=== PATIENT | male | born 1960 | race Caucasian/White ===

== ENCOUNTER 2017-10-20 01:29 | Emergency (ER) | payer SELFPAY ==
[2017-10-20] MEDS: fentaNYL CITRATE/PF 100 MCG/ 2ML AMP IVP ONE (01:51)
[2017-10-20] MEDS: ONDANSETRON HCL/PF 4 MG/ 2ML VIAL IVP ONE (01:52)
[2017-10-20] MEDS: 0.9 % SODIUM CHLORIDE 1,000 ML IV ONE ×2 (01:52→01:53)
--- NOTE | 2017-10-20 01:55 | ED Physician Documentation ---
Male Genitourinary Problems - HISTORIAN Historian: patient, spouse - HPI Stated Complaint: trae flank and groin pain n/v Chief Complaint: Male Genitourinary Problems Additional Information: bilateral groin pain w/pain end of penis. last ua 1900hrs approx 8 ounces hard to start then fairly easy to pass no prev similar difficulty or kidney stones- feels unable to make urine now w/end penis pain. has not had prev similar episodes states pcp says prostate not sig enlarged Onset: hours (mid afternoon thought constipated but took laxative w/ xs boweloutput) Duration: continues in ED, worse Context: denies: drug use, lifting, trauma, recent surgery Severity: moderate, severe - Associated Symptoms Problems Urinating: other (unable as above) - ROS CONST: none - PAST HX Past History: erectile dysfunction (anxiety depression) Cardiac Disease: none Surgeries/Procedures: none Allergies/Adverse Reactions: Allergies Allergy/AdvReac Type Severity Reaction Status Date / Time Penicillins Allergy Severe Rash Verified 10/20/17 01:40 Home Medications: Ambulatory Orders Medication Instructions Recorded Atorvastatin Calcium [Atorvastatin 10 mg PO D 10/20/17 Calcium] Sertraline HCl [Zoloft] 100 mg PO D 10/20/17 - SOCIAL HX Smoking History: non-smoker Alcohol Use: none Drug Use: none - FAMILY HX Family History: none - REVIEWED ASSESSMENTS Nursing Assessment Reviewed: Yes Vitals Reviewed: Yes ED Results Lab/Radiology - Orders Orders: ED Orders Category Date Time Status Holt [Urinary catheterization] 1T Care 10/20/17 01:[address] IV Lock 1T Care 10/20/17 01:39 Active CBC/PLATELET/DIFF Routine Lab 10/20/17 Ordered CMP [CMP] Routine Lab 10/20/17 Ordered URINALYSIS Routine Lab 10/20/17 Ordered 0.9 % Sodium Chloride [Normal Saline] 1,000 ml Med 10/20/17 01:43 Discontinued IV .STK-MED 0.9 % Sodium Chloride [Normal Saline] 1,000 ml Med 10/20/17 01:41 Active IV Q1H Ondansetron HCl/Pf [Zofran 4 mg/2 ml] Med 10/20/17 01:39 Discontinued 4 mg IVP NOW ONE fentaNYL CITRATE/PF [Duragesic] Med 10/20/17 01:39 Discontinued 100 mcg IVP NOW ONE Male Genitourinary Problems - EXAM General Appearance: moderate distress, anxious Abdomen: tenderness, guarding. No: abnml bowel sounds Genitals: nml inspection, testicles nml palp., testicular tenderness, epididymal tenderness. No: urethral discharge EENT: no signs of dehydration, no nystagmus Neck: nml inspection. No: lymphadenopathy Respiratory: no resp distress, chest non-tender, breath sounds normal CVS: reg rate & rhythm, heart sounds normal Back: non-tender, painless ROM Extremities: normal range of motion, non-tender Neuro/Psych: oriented X3, motor nml, sensation nml Discharge Clincal Impression: urinary outlet obstruction, anxiety Comments: must see pcp preferably urologist Condition: Good Disposition: 01 HOME, SELF-CARE Decision to Admit: NO Decision Time: 02:46
[2017-10-20 02:05] LABS: eGFR (African) > 60; eGFR (Non-African) > 60
[2017-10-20] MEDS: LIDOCAINE Urojet 5 ML JEL MM ONE ×2 (02:10→02:28)
[2017-10-20] MEDS ORDERED: HYDROcodone /APAP 5/325 1 EACH TABLET PO ONE (02:52)
[2017-10-20 05:58] LABS: APPEARANCE,URINE CLOUDY (CLEAR); COLOR,URINE AMBER (YELLOW)
[2017-10-20 05:59] LABS: OCCULT BLOOD,URINE TRACE IN TACT (NEGATIVE); PH URINE 8.5 (5.0 - 8.0); UROBILINOGEN URINE 0.2 Eu (0.2-1.0)
[2017-10-20 07:11] VITALS: BP 129/72
[2017-10-20 15:46] LABS: BASO % 0.6 % (0.0-1.5); EOS % 0.4 % (0.0-6.8); LYMPH ABS # 0.93 thou/uL (0.60-4.00); MCH. 29.6 pg (28.0-34.0); MCV 91.9 fL (80.0-100.0); MONOCYTE % 4.8 % (0.0-11.0); MONOCYTE ABS # 0.58 thou/uL (0.00-0.90); PLATELET COUNT 272 thou/uL (130-400)
== END 2017-10-20 03:10 | disposition home or self-care (01) ==
LOC: ED 01:29
DX: N13.9 Obstructive and reflux uropathy, unspecified (principal); F41.9 Anxiety disorder, unspecified
CPT/HCPCS: 80053; 81002; 85025; J2405; J3010; J7030; S1016